=== PATIENT | female | born 1970 | race American Indian/Alaskan Native ===

== ENCOUNTER 2018-08-28 10:55 | Emergency (ER) | payer OTHER ==
--- NOTE | 2018-08-28 11:52 | Emergency Department Report ---
ED General Adult HPI - General Chief complaint: Fall Stated complaint: SYNCOPAL EPISODE Time Seen by Provider: 08/28/18 11:32 Source: patient, EMS Mode of arrival: Stretcher Limitations: Language Barrier - History of Present Illness Initial comments: Patient is 48 years old female with history of high blood pressure. Patient presented to the emergency room for evaluation of one syncopal episode that happened this morning after patient received the news from her own [place], that her dad this morning. The patient stated that she is feeling better now except for headache. Patient denied any chest pain or shortness of breath. No weakness numbness or tingling sensation. Severity scale (0 -10): 0 - Related Data Allergies Allergy/AdvReac Type Severity Reaction Status Date / Time No Known Allergies Allergy Unverified 08/28/18 11:49 ED Review of Systems ROS: Stated complaint: SYNCOPAL EPISODE Other details as noted in HPI Comment: All other systems reviewed and negative Constitutional: denies: chills, fever Respiratory: denies: cough, orthopnea, shortness of breath, SOB with exertion, SOB at rest, wheezing Cardiovascular: denies: chest pain, palpitations Gastrointestinal: denies: abdominal pain, nausea, vomiting, diarrhea, constipation, hematemesis, melena, hematochezia Genitourinary: denies: urgency, dysuria, frequency, hematuria, discharge Musculoskeletal: denies: back pain Neurological: headache, vertigo. denies: weakness, numbness, paresthesias, confusion Psychiatric: denies: depression, auditory hallucinations, visual hallucinations, homicidal thoughts, suicidal thoughts ED Past Medical Hx - Past Medical History Previous Medical History?: Yes Hx Hypertension: Yes Hx Kidney Stones: Yes - Surgical History Past Surgical History?: Yes Additional Surgical History: x2 - Social History Smoking Status: Never Smoker Substance Use Type: None ED Physical Exam - General Limitations: Language Barrier General appearance: alert, in no apparent distress - Head Head exam: Present: atraumatic, normocephalic, normal inspection - Eye Eye exam: Present: normal appearance, PERRL - ENT ENT exam: Present: normal exam, normal orophraynx, mucous membranes moist - Neck Neck exam: Present: normal inspection, full ROM. Absent: tenderness, meningismus, lymphadenopathy, thyromegaly - Respiratory Respiratory exam: Present: normal lung sounds bilaterally. Absent: respiratory distress, wheezes, rales, rhonchi, chest wall tenderness, accessory muscle use, decreased breath sounds, prolonged expiratory - Cardiovascular Cardiovascular Exam: Present: regular rate, normal rhythm, normal heart sounds - GI/Abdominal GI/Abdominal exam: Present: soft, normal bowel sounds. Absent: distended, tenderness, guarding, rebound, rigid, organomegaly, mass, bruit, pulsatile mass, hernia - Extremities Exam Extremities exam: Present: normal inspection, full ROM, normal capillary refill. Absent: pedal edema, calf tenderness - Back Exam Back exam: Present: normal inspection, full ROM. Absent: tenderness, CVA tenderness (R), CVA tenderness (L), muscle spasm, paraspinal tenderness, vertebral tenderness - Neurological Exam Neurological exam: Present: alert, oriented X3, CN II-XII intact, normal gait, reflexes normal - Psychiatric Psychiatric exam: Present: normal mood, anxious. Absent: depressed, agitated, flat affect, manic, homicidal ideation, suicidal ideation - Skin Skin exam: Present: warm, intact, normal color ED Course Vital Signs 08/28/18 08/28/18 08/28/18 11:15 11:52 12:00 Temperature 97.5 F L Pulse Rate 90 83 Respiratory 14 15 14 Rate Blood Pressure 156/100 138/93 Blood Pressure 156/100 [Left] O2 Sat by Pulse 99 100 98 Oximetry 08/28/18 13:00 Temperature Pulse Rate 78 Respiratory 14 Rate Blood Pressure 138/93 Blood Pressure [Left] O2 Sat by Pulse 98 Oximetry ED Medical Decision Making - Lab Data Result diagrams: 08/28/18 12:11 08/28/18 12:07 - Radiology Data Radiology results: report reviewed Referring Physician: JAY LOCKETT Patient Name: VERNA ISBELL Date of : 1970 Sex: Female Report Date: 2018-08-28 Report Status: [place] [address] Cat Scan Report Signed Patient: VERNA ISBELL MR#: [id number] : 1970 Acct:[id number] Age/Sex: 48 / F ADM Date: 08/28/18 Loc: ED Attending Dr: Ordering Physician: JAY LOCKETT Date of Service: 08/28/18 Procedure(s): CT head/brain wo con Accession Number(s): [id number] cc: JAY PUENTESHERWINAnna CT HEAD WITHOUT CONTRAST: HISTORY: Headache. TECHNIQUE: Sequential 2.5mm CT images. COMPARISON: none. FINDINGS: Cerebral Parenchyma: Within normal limits. Cerebellum: Within normal limits. Brainstem: Within normal limits. Ventricles: Normal. Sella: Normal. Extra-axial spaces: Normal. Basal Cisterns: Normal. Intracranial Hemorrhage: None. Midline Shift: None. Calvarium: Normal. Sinuses: Normal. Mastoid Air Cells: Normal. Visualized Orbits: Normal. IMPRESSION: Cranial CT scan within normal limits. Transcribed By: TTR Dictated By: DONNA BRAVO JR, MD Electronically Authenticated By: DONNA BRAVO JR, MD Signed Date/Time: 08/28/18 123 DD/ 30 TD/TT: 08/28/18 1231 - Medical Decision Making Patient is 48 years old female with history of high blood pressure. Patient presented to the emergency room for evaluation of one syncopal episode that happened this morning after patient received the news from her own country, [place], that her dad this morning. The patient stated that she is feeling better now except for headache. Patient denied any chest pain or shortness of breath. No weakness numbness or tingling sensation. Patient labs reviewed that is unremarkable. CT brain is negative for acute finding. Patient stated that she is feeling much better. Patient will be discharged home to follow PRIMARY CARE PHYSICIAN AND TO RETURN TO THE ER IF HER SYMPTOMS ARE NOT IMPROVED. Critical care attestation.: If time is entered above; I have spent that time in minutes in the direct care of this critically ill patient, excluding procedure time. ED Disposition Clinical Impression: Syncope and collapse, Headache Disposition: - TO HOME OR SELFCARE Is pt being admited?: No Condition: Stable Instructions: Syncope (ED) Referrals: PRIMARY CARE, [Primary Care Provider] - 3-5 Days Forms: Work/School Release Form(ED)
[2018-08-28 12:18] LABS: Basophils # (Auto) 0.1 K/mm3 (0.0-0.1); Basophils % (Auto) 0.8 % (0.0-1.8); Eosinophils # (Auto) 0.1 K/mm3 (0.0-0.4); Eosinophils % (Auto) 1.5 % (0.0-4.3); Hemoglobin 13.9 gm/dl (10.1-14.3); Lymphocytes # (Auto) 2.3 K/mm3 (1.2-5.4); Lymphocytes % (Auto) 25.7 % (13.4-35.0); Mean Corpuscular HGB Conc 34 % (30-34); Mean Corpuscular Volume 89 fl (79-97); Monocytes # (Auto) 0.5 K/mm3 (0.0-0.8); Platelet Count 328 K/mm3 (140-440); Red Blood Count 4.62 M/mm3 (3.65-5.03); Red Cell Distribution Width 13.8 % (13.2-15.2)
--- NOTE | 2018-08-28 12:35 | Cat Scan Report ---
CT HEAD WITHOUT CONTRAST: HISTORY: Headache. TECHNIQUE: Sequential 2.5mm CT images. COMPARISON: none. FINDINGS: Cerebral Parenchyma: Within normal limits. Cerebellum: Within normal limits. Brainstem: Within normal limits. Ventricles: Normal. Sella: Normal. Extra-axial spaces: Normal. Basal Cisterns: Normal. Intracranial Hemorrhage: None. Midline Shift: None. Calvarium: Normal. Sinuses: Normal. Mastoid Air Cells: Normal. Visualized Orbits: Normal. IMPRESSION: Cranial CT scan within normal limits.
[2018-08-28 12:37] LABS: BUN/Creatinine Ratio 17; Blood Urea Nitrogen 10 mg/dL (7-17); Calcium 9.1 mg/dL (8.4-10.2); Hemolysis Index 13
[2018-08-28 12:45] VITALS: BP 138/93
== END 2018-08-28 13:37 | disposition home or self-care (01) ==
LOC: EDSEX → ED 10:55
DX: R55 Syncope and collapse (principal); R51 Headache; I10 Essential (primary) hypertension; Z87.442 Personal history of urinary calculi
CPT/HCPCS: 36415; 70450; 80048; 85025

== ENCOUNTER 2021-06-21 10:15 | Emergency (ER) | payer SELFPAY ==
[2021-06-21 13:01] LABS: Basophils # (Auto) 0.1 K/mm3 (0.0-0.1); Basophils % (Auto) 0.4 % (0.0-1.8); Eosinophils # (Auto) 0.1 K/mm3 (0.0-0.4); Eosinophils % (Auto) 0.8 % (0.0-4.3); Hematocrit 46.8 % (30.3-42.9); Hemoglobin 15.7 gm/dl (10.1-14.3); Lymphocytes # (Auto) 2.1 K/mm3 (1.2-5.4); Lymphocytes % (Auto) 16.6 % (13.4-35.0); Mean Corpuscular HGB Conc 34 % (30-34); Mean Corpuscular Volume 89 fl (79-97); Monocytes # (Auto) 0.9 K/mm3 (0.0-0.8); Monocytes % (Auto) 7.3 % (0.0-7.3); Platelet Count 319 K/mm3 (140-440); Red Blood Count 5.28 M/mm3 (3.65-5.03)
[2021-06-21 13:11] LABS: Albumin 4.6 g/dL (3.9-5); Calcium 10.3 mg/dL (8.4-10.2)
[2021-06-21] MEDS ORDERED: SODIUM CHLORIDE 0.9% 1000 ML 1,000 ML IV ONE ×2 (14:19→16:13)
[2021-06-21] MEDS ORDERED: DICYCLOMINE 10 MG CAP PO ONE (14:19)
--- NOTE | 2021-06-21 14:24 | Emergency Department Report ---
HPI - General Chief Complaint: Abdominal Pain Time Seen by Provider: 06/21/21 14:06 - HPI HPI: 50-year-old female with history of hypertension and remote history of kidney stones in the past presents complaining of acute on chronic lower abdominal pain. Patient states that for the last several months she has had intermittent abdominal pain which migrates from one side and from one quadrant to another. However over the last 2 days she has had bilateral lower abdominal pain which is significantly worse than it has been in the past. Yesterday it was associated with nausea and vomiting although today she does not have nausea. She tried taking Tylenol for the pain yesterday with only mild and temporary relief. She says she has a history of bilateral tubal ligation and her LMP was in August before that it was irregular. Other than the abdominal pain and nausea yesterday she denies any other associated symptoms or complaints including fever/chills, headache, vision change, neck pain, chest pain, shortness of breath, cough, back pain, dysuria, vaginal discharge, vaginal bleeding, focal weakness, sensory changes, or any other complaints. ED Past Medical Hx - Past Medical History Previous Medical History?: Yes Hx Hypertension: Yes Hx Kidney Stones: Yes - Surgical History Past Surgical History?: Yes Additional Surgical History: x2 - Social History Smoking Status: Never Smoker Substance Use Type: None ED Review of Systems ROS: Stated complaint: LOWER ABD PAIN Other details as noted in HPI Comment: All other systems reviewed and negative Constitutional: denies: chills, fever Eyes: denies: eye pain, vision change ENT: denies: throat pain, congestion Respiratory: denies: cough, shortness of breath Cardiovascular: denies: chest pain, palpitations Gastrointestinal: abdominal pain, nausea, vomiting. denies: diarrhea, constipation Genitourinary: denies: dysuria, frequency, hematuria, discharge Musculoskeletal: denies: back pain, arthralgia Skin: denies: rash, lesions Neurological: denies: headache, weakness, numbness Hematological/Lymphatic: denies: easy bleeding Physical Exam - Physical Exam Vital Signs: Vital Signs 06/21/21 10:53 Temperature 98.5 F Pulse Rate 97 H Respiratory 16 Rate Blood Pressure 165/111 [Left] O2 Sat by Pulse 96 Oximetry Physical Exam: GENERAL: Well developed and well nourished. No acute distress HEAD: Normocephalic. No obvious signs of trauma. ENT: Dry mucous membranes. EYES: Extraocular movements are intact. Pupils are equal round and reactive to light bilaterally NECK: Supple. Full ROM is intact. Trachea is midline. LUNGS: Nonlabored breathing. Equal chest rise bilaterally. Clear to auscultation bilaterally. CARDIOVASCULAR: Regular rate and rhythm. No murmurs or rubs. VASCULAR: Cap refill < 2 seconds ABDOMEN: Abdomen is soft and nondistended. There is tenderness to palpation of the right lower quadrant and left lower quadrant of the abdomen without guarding or rebound tenderness. There is no tenderness of the suprapubic region in the middle or bilaterally. SKIN: Skin is warm and dry NEURO: Patient is awake, alert, and oriented. manager store II-XII grossly intact. No focal deficits. Normal motor and sensory exam throughout. Normal speech. MUSCULOSKELETAL: No obvious deformities. No significant tenderness. Normal ROM throughout. BACK/SPINE: No midline tenderness or step-offs of the C/T/L spine. No costovertebral angle tenderness. ED Course Vital Signs 06/21/21 10:53 Temperature 98.5 F Pulse Rate 97 H Respiratory 16 Rate Blood Pressure 165/111 [Left] O2 Sat by Pulse 96 Oximetry ED Medical Decision Making - Lab Data Result diagrams: 06/21/21 12:17 06/21/21 12:17 Lab Results 06/21/21 06/21/21 06/21/21 Range/Units 12:17 12:17 14:24 WBC 12.7 H (4.5-11.0) K/mm3 RBC 5.28 H (3.65-5.03) M/mm3 Hgb 15.7 H (10.1-14.3) gm/dl Hct 46.8 H (30.3-42.9) % MCV 89 (79-97) fl MCH 30 (28-32) pg MCHC 34 (30-34) % RDW 14.0 (13.2-15.2) % Plt Count 319 (140-440) K/mm3 Lymph % (Auto) 16.6 (13.4-35.0) % [place]uming % (Auto) 7.3 (0.0-7.3) % Eos % (Auto) 0.8 (0.0-4.3) % Baso % (Auto) 0.4 (0.0-1.8) % Lymph # (Auto) 2.1 (1.2-5.4) K/mm3 [place]uming # (Auto) 0.9 H (0.0-0.8) K/mm3 Eos # (Auto) 0.1 (0.0-0.4) K/mm3 Baso # (Auto) 0.1 (0.0-0.1) K/mm3 Seg Neutrophils % 74.9 H (40.0-70.0) % Seg Neutrophils # 9.6 H (1.8-7.7) K/mm3 Sodium 139 (137-145) mmol/L Potassium 4.4 (3.6-5.0) mmol/L Chloride 99.1 (98-107) mmol/L Carbon Dioxide 23 (22-30) mmol/L Anion Gap 21 mmol/L BUN 16 (7-17) mg/dL Creatinine 1.2 (0.6-1.2) mg/dL Estimated GFR 57 ml/min BUN/Creatinine Ratio 13 % Glucose 99 (65-100) mg/dL Lactic Acid (0.7-2.0) mmol/L Calcium 10.3 H (8.4-10.2) mg/dL Magnesium 2.10 (1.7-2.3) mg/dL Total Bilirubin 0.40 (0.1-1.2) mg/dL AST 21 (5-40) units/L ALT 16 (7-56) units/L Alkaline Phosphatase 134 H (35-129) units/L Troponin T < 0.010 (0.00-0.029) ng/mL Total Protein 8.5 H (6.3-8.2) g/dL Albumin 4.6 (3.9-5) g/dL Albumin/Globulin Ratio 1.2 % Lipase 14 (13-60) units/L HCG, Qual (Negative) Urine Color (Yellow) Urine Turbidity (Clear) Urine pH (5.0-7.0) Ur Specific [place] (1.003-1.030) Urine Protein (Negative) mg/dL Urine Glucose (UA) (Negative) mg/dL Urine Ketones (Negative) mg/dL Urine Blood (Negative) Urine Nitrite (Negative) Urine Bilirubin (Negative) Urine Urobilinogen (<2.0) mg/dL Ur Leukocyte Esterase (Negative) Urine WBC (Auto) (0.0-6.0) /HPF Urine RBC (Auto) (0.0-6.0) /HPF U Epithel Cells (Auto) (0-13.0) /HPF Urine Mucus /HPF Urine Yeast (Budding) /HPF 06/21/21 06/21/21 06/21/21 Range/Units 14:24 16:19 Unknown WBC (4.5-11.0) K/mm3 RBC (3.65-5.03) M/mm3 Hgb (10.1-14.3) gm/dl Hct (30.3-42.9) % MCV (79-97) fl MCH (28-32) pg MCHC (30-34) % RDW (13.2-15.2) % Plt Count (140-440) K/mm3 Lymph % (Auto) (13.4-35.0) % [place] % (Auto) (0.0-7.3) % Eos % (Auto) (0.0-4.3) % Baso % (Auto) (0.0-1.8) % Lymph # (Auto) (1.2-5.4) K/mm3 [place] # (Auto) (0.0-0.8) K/mm3 Eos # (Auto) (0.0-0.4) K/mm3 Baso # (Auto) (0.0-0.1) K/mm3 Seg Neutrophils % (40.0-70.0) % Seg Neutrophils # (1.8-7.7) K/mm3 Sodium (137-145) mmol/L Potassium (3.6-5.0) mmol/L Chloride (98-107) mmol/L Carbon Dioxide (22-30) mmol/L Anion Gap mmol/L BUN (7-17) mg/dL Creatinine (0.6-1.2) mg/dL Estimated GFR ml/min BUN/Creatinine Ratio % Glucose (65-100) mg/dL Lactic Acid 1.40 (0.7-2.0) mmol/L Calcium (8.4-10.2) mg/dL Magnesium (1.7-2.3) mg/dL Total Bilirubin (0.1-1.2) mg/dL AST (5-40) units/L ALT (7-56) units/L Alkaline Phosphatase (35-129) units/L Troponin T (0.00-0.029) ng/mL Total Protein (6.3-8.2) g/dL Albumin (3.9-5) g/dL Albumin/Globulin Ratio % Lipase (13-60) units/L HCG, Qual Negative (Negative) Urine Color Yellow (Yellow) Urine Turbidity Clear (Clear) Urine pH 6.0 (5.0-7.0) Ur Specific [place] 1.015 (1.003-1.030) Urine Protein <15 mg/dl (Negative) mg/dL Urine Glucose (UA) Neg (Negative) mg/dL Urine Ketones Neg (Negative) mg/dL Urine Blood Mod (Negative) Urine Nitrite Neg (Negative) Urine Bilirubin Neg (Negative) Urine Urobilinogen < 2.0 (<2.0) mg/dL Ur Leukocyte Esterase Neg (Negative) Urine WBC (Auto) 4.0 (0.0-6.0) /HPF Urine RBC (Auto) 12.0 (0.0-6.0) /HPF U Epithel Cells (Auto) < 1.0 (0-13.0) /HPF Urine Mucus Few /HPF Urine Yeast (Budding) Few /HPF - Radiology Data Radiology results: report reviewed - Medical Decision Making 50-year-old female with history of hypertension presenting with acute on chronic lower abdominal pain worse over the past 2 days with associated nausea and vomiting. She is afebrile and with normal vital signs with exception of elevated blood pressure and heart rate in the 90s. On physical examination she has dry mucous membranes. She has tenderness to palpation of the right lower quadrant and left lower quadrant of the abdomen without guarding or rebound tenderness. There is no CVA tenderness. We will perform broad work-up with a full set of labs, EKG, and CT of the abdomen pelvis to assess for evidence of appendicitis, colitis, diverticulitis, pancreatitis, pyelonephritis, or other in tra-abdominal abnormality to explain the patient's presentation. We will give 1 L of IV fluids and Bentyl and continue to monitor the patient. Labs have partially resulted and reveal no significant leukocytosis or anemia. However, there appears to be hemoconcentration with slightly elevated WBC count of 12.7 and hemoglobin of 15.7. This is supported by a mildly elevated creatinine of 1.2 from unknown baseline. There are no significant electrolyte abnormalities. Remaining labs are still pending. CT of the abdomen and pelvis reveals bilateral obstructive renal disease with suspected pyelonephritis on the right. Given finding of possible infected obstructed kidney stones I have ordered broad-spectrum IV vancomycin and cefepime. We will give 30 mL/kg of IV fluids. We will plan to transfer the patient to a facility with urology given the possible need for stent placement and or surgical intervention. All of this was discussed with the patient using Lao speaking nurse and the patient's in Kos[place] both of whom expressed understanding and agreement with this plan of care At 5:55 PM I spoke with Dr. Rowell of urology at [facility]. The patient is accepted for transfer to the floor. Shortly thereafter, the nurse informed me that the patient is experiencing redness in her face along with itching. I have ordered 50 mg of Benadryl and asked the nurse to slow the infusion of vancomycin as much as possible. Critical Care Time: Yes Critical care time in (mins) excluding proc time.: 35 Critical care attestation.: If time is entered above; I have spent that time in minutes in the direct care o f this critically ill patient, excluding procedure time. Critical care time was spent in the evaluation/assessment, work-up and management of an infected obstructed kidney stone requiring IV antibiotics, extensive discussion with the patient as well as discussion with the transfer center and urologist as well as frequent reevaluation and reassessment. ED Disposition Clinical Impression: Hydronephrosis with renal calculous obstruction, Pyelonephritis, ASHLEY (acute kidney injury), Secondary hypertension Disposition: 02 SHORT TERM [facility]OSPITAL Is pt being admited?: No Instructions: Abdominal Pain (ED), Hypertension (ED) Referrals: PRIMARY CARE, [Primary Care Provider] - 3-5 Days
[2021-06-21 14:55] LABS: Bilirubin,Urine NEG (Negative); Blood,Urine MOD (Negative); Color,Urine Yellow (Yellow); Mucus,Urine FEW /HPF; Protein,Urine <15 mg/dL mg/dL (Negative); Urobilinogen,Urine < 2.0 mg/dL (<2.0)
--- NOTE | 2021-06-21 16:06 | Cat Scan Report ---
CT ABDOMEN AND PELVIS WITH CONTRAST HISTORY: RLQ and LLQ tenderness. COMPARISON: None. TECHNIQUE: CT images of the abdomen and pelvis were obtained following administration of intravenous contrast. All CT scans at this location are performed using CT dose reduction for ALARA by means of automated exposure control. CONTRAST: 100 ml of intravenous contrast administered. FINDINGS: Lungs/bones: Lung bases are clear. No acute osseous abnormality identified. Abdomen/pelvis: There is a 1.1 cm stone in the left renal pelvis near the UPJ with moderate hydronep hrosis and there is a 6 mm stone at the right UPJ with mild to moderate hydronephrosis. The right kid gaurav also appears to be quite edematous compared to the left with dusky enhancement. A few additional nonobstructive calyceal stones are seen in the mid to lower pole left kidney measuring up to 3 mm. Gallbladder surgically absent. There is moderate hepatic steatosis. The spleen, pancreas, adrenals, a nd proximal GI tract appear unremarkable. Urinary bladder and reproductive organs are unremarkable with no pelvic free fluid. There is colonic diverticulosis with no acute inflammatory change. The appendix is normal. The distal ureters are also normal. IMPRESSION: 1. Bilateral obstructive renal stone disease with hydronephrosis and abnormal enhancement of the righ t kidney which could be related to edema or evolving infectious/inflammatory process such as pyelonep hritis. Signer Name: Esteban Garces MD Signed: 06/21/2021 4:01 PM Workstation Name: [id number]
[2021-06-21] MEDS ORDERED: CEFEPIME/NS 2 GM/100 ML 2 GM/100 ML BAG IV ONE (16:12)
[2021-06-21] MEDS ORDERED: VANCOMYCIN 1,000 MG in SODIUM CHLORIDE 0.9% 500 ML 500 ML IV ONE (16:13)
[2021-06-21] MEDS ORDERED: VANCOMYCIN 1,500 MG in SODIUM CHLORIDE 0.9% 500 ML 500 ML IV ONE (17:00)
[2021-06-21] MEDS ORDERED: diphenhydrAMINE 50 MG/ML VIAL IV ONE ×2 (18:00→18:02)
[2021-06-21] MEDS ORDERED: fentaNYL 100 MCG/2 ML INJ ONE (21:13)
[2021-06-21 21:18] VITALS: BP 170/106
[2021-06-21] MEDS ORDERED: fentaNYL 100 MCG/2 ML INJ IV ONE (21:22)
--- NOTE | 2021-06-22 11:00 | Electrocardiograph Report ---
[facility] Test Date: 2021-06-21 Test Time: 19:33:02 Pat Name: VERNA ISBELL Department: Room: Gender: F Landscape Specialist: PARK : 1970 Requested By: ZAC JOY Order Number: [id number] Reading MD: Elena Adame Measurements Intervals [place] Rate: 93 P: 36 IL: 136 QRS: 42 QRSD: 80 T: 10 QT: 404 QTc: 502 Interpretive Statements Sinus rhythm Probable left atrial enlargement Probable left ventricular hypertrophy No previous ECG available for comparison Electronically Signed On 06-22-2021 10:59:54 EST by Elena Adame
== END 2021-06-21 22:40 | disposition short-term general hospital (02) ==
LOC: ED 10:15
DX: N13.2 Hydronephrosis with renal and ureteral calculous obstruction (principal); N12 Tubulo-interstitial nephritis, not specified as acute or chronic; N17.9 Acute kidney failure, unspecified; I10 Essential (primary) hypertension; Z98.890 Other specified postprocedural states
CPT/HCPCS: 36415; 74177; 80053; 81001; 82140; 83690; 83735; 84484; 84703; 85025; 87040; 87086; 93005; 96361; 96365; 96366; 96367; 96375; 96376; 99291; J0692; J1200; J3010; J3370; J7030; J7040; Q9967; Q0162